=== PATIENT | female | born 1975 | race Hispanic/Latino ===

== ENCOUNTER → 2023-12-14 | Outpatient (CLI) | payer OTHER | END | disposition home or self-care (01) | LOC: RAH 13:05 | PROVIDERS: ATTEND Internal Medicine Cardiovascular Disease | DX: Z13.6 Encounter for screening for cardiovascular disorders (principal) | CPT/HCPCS: 75571 ==

== ENCOUNTER → 2024-04-21 | Outpatient (CLI) | payer OTHER | END | disposition home or self-care (01) | LOC: SHCH 09:22 | PROVIDERS: ATTEND Internal Medicine Cardiovascular Disease | DX: I08.3 Combined rheumatic disorders of mitral, aortic and tricuspid valves (principal); I87.2 Venous insufficiency (chronic) (peripheral); R00.2 Palpitations | CPT/HCPCS: 93306; 93970 ==

== ENCOUNTER 2024-06-21 06:52 | Day surgery (SDC) | payer OTHER ==
[~2024-06-21] VITALS: Ht 162.6 cm; Wt 59.0 kg
[2024-06-21] VITALS (11 sets, daily range): BP systolic 86–114; BP diastolic 51–85; PULSE 58–81; RESP 14–18; TEMP 97.3–97.6
[~2024-06-21 06:52] MED LIST: LORA10TA7 PO; METO-391 PO
[2024-06-21] MEDS: 0.9%NACL 1000ML 1,000 ML IV ONE (07:51)
[2024-06-21] MEDS ORDERED: proPOFol 10 MG/ML 20ML VIAL IV ONE (09:46)
--- NOTE | 2024-06-21 11:38 | NUR ---
Full and complete discharge instructions given to Patient and Family both verbally and in writing. Explained GI procedure precautions and follow up. All questions answered. PIV removed with catheter tip intact. Home with Family W/C to POV.
== END 2024-06-21 11:15 | disposition home or self-care (01) ==
LOC: CANPRESDC → DAH 06:52 → ENDO 06:52
PROVIDERS: ATTEND Internal Medicine Gastroenterology
DX: Z12.11 Encounter for screening for malignant neoplasm of colon (principal); K29.50 Unspecified chronic gastritis without bleeding; K20.90 Esophagitis, unspecified without bleeding; K31.9 Disease of stomach and duodenum, unspecified; K31.89 Other diseases of stomach and duodenum; I10 Essential (primary) hypertension; R10.13 Epigastric pain; Z79.899 Other long term (current) drug therapy; Z87.898 Personal history of other specified conditions; Z98.891 History of uterine scar from previous surgery; Z98.51 Tubal ligation status; Z88.8 Allergy status to other drugs, medicaments and biological substances
CPT/HCPCS: 81025; 43239; 45378; J7030 ×2; J2704; A4620; A4215; A4223; A7002; A4222; A4221; A4663; A4606; J3490

== ENCOUNTER 2024-11-15 07:44 | Day surgery (SDC) | payer OTHER ==
[2024-11-14 15:35] LABS: IMMATURE GRANULOCYTE ABSOLUTE 0.01 K/uL (0-1); NUCLEATED RED BLOOD CELLS 0.0 % (0.0-0.19); PLATELET COUNT (AUTO) 236 K/uL (130-400); RED BLOOD CELL COUNT(AUTO) 4.21 MIL/uL (4.00-5.50); RED CELL DISTRIBUTION WIDTH 12.0 % (11.0-15.5); WHITE BLOOD COUNT (AUTO) 6.0 K/uL (4.8-10.8)
[2024-11-14 15:46] LABS: INR 0.99 (0.85-1.15)
[2024-11-14 15:50] LABS: CREATININE 0.7 mg/dL (0.5-1.0); GLOMERULAR FILTR. RATE CALC 105.0 mL/min (>90); GLUCOSE,RANDOM 90.0 mg/dL (70-105); SODIUM SERUM 141.0 mmol/L (136-145); UREA NITROGEN, BLOOD 12.0 mg/dL (7-18)
[2024-11-14 15:52] VITALS: BP 128/72; PULSE 63; RESP 18; TEMP 97.7
[~2024-11-15] VITALS: Ht 162.6 cm; Wt 63.8 kg
[~2024-11-15 07:44] MED LIST changes: +ALLEGRA D PO; +DEXTROSE 50%-WATER 50 ML DISP.SYRIN IV PRN; +GLUCAGON 1MG KIT 1 MG ML IM PRN; -LORA10TA7 PO; +NITROGLYCERIN 0.4 MG SL TAB SL PRN; +OMEP20CA12 PO
[2024-11-15 07:55] VITALS: BP 89/59; PULSE 64; RESP 12; TEMP 98
[2024-11-15] MEDS: 0.9%NACL 1000ML 1,000 ML IV SCH (08:04)
[2024-11-15] MEDS ORDERED: LIDOCAINE HCL 400MG/20ML VIAL ONE (09:56)
[2024-11-15] MEDS ORDERED: IODIXANOL 320 MG/ML 100 ML VIAL ONE (09:56)
[2024-11-15] MEDS ORDERED: HEParin-NS 1,000 UNIT/500 ML 1,000 ML IV ONE (09:57)
[2024-11-15] MEDS ORDERED: MIDAZOLAM HCL 1 MG/ML 2ML VIAL ONE (10:06)
--- NOTE | 2024-11-15 10:48 | PRN ---
Procedure Note INDICATION FOR PROCEDURE: [] Iliac vein compression PROCEDURE: [] Conscious sedation Left common femoral vein sheath placement eight Tajik Bilateral common femoral venogram Intravascular ultrasound of IVC, bilateral common iliac external iliac common femoral veins DATE OF PROCEDURE: November 15, 2024 MAINTENANCE MECHANIC: Randy Diehl MD, F.A.C.C. PROCEDURE NOTE: [] Patient electively brought to catheterization suite and prepped and draped in sterile fashion. An IV was started if not already in place in both groins were exposed for venous access. 2% lidocaine was used for local anesthesia and then a micropuncture kit was used to gain access and once free-flowing blood was seen modified Seldinger technique was utilized to place a eight Tajik sheath into the left common femoral vein. Next a left common femoral venogram was performed. Next a 0.035 in glidewire successfully traversed over to the right common femoral vein. Next an Omni flush catheter was placed and a venogram was performed followed by the Omni flush catheter removed and the intravascular ultrasound catheter placed and intravascular ultrasound interrogation of right common femoral vein right external iliac vein and right common iliac vein was performed. Next the IVUS catheter was removed and the Omni flush catheter was then used to advance into the IVC. Next Omni flush catheter was removed over wire and then the intravascular ultrasound catheter was then advanced and interrogation was done of the IVC, left common iliac vein external iliac vein and common femoral vein. At end of case sheath was removed using manual pressure and no complications occurred. FINDINGS: [] Critical compression of left common iliac vein at 74% and left external iliac vein at 51.3% No significant compression noted of right common iliac venous system. IMPRESSION: [] Critical left common iliac and external iliac vein compression, symptomatic PLAN: [] Follow up in office in two weeks No driving 24 hours No heavy lifting 5 lb or greater for three days Trying to obtain authorization for intervention to severe symptomatic left common iliac and external iliac vein compression RANDY DIEHL MD Nov 15, 2024 10:48
[2024-11-15] MEDS ORDERED: GLUCAGON 1MG KIT 1 MG ML IM PRN (11:00)
[2024-11-15] MEDS ORDERED: DEXTROSE 50%-WATER 50 ML DISP.SYRIN IV PRN (11:00)
[2024-11-15 11:05] VITALS: BP 104/71; PULSE 60; RESP 16; TEMP 97.7
[2024-11-15 11:20] VITALS: BP 96/66; PULSE 62; RESP 16
[2024-11-15 11:35] VITALS: BP 98/67; PULSE 60; RESP 14
[2024-11-15 11:50] VITALS: BP 97/63; PULSE 61; RESP 14
--- NOTE | 2024-11-15 12:04 | NUR ---
Left Femoral site without sign of bleeding bruising or hematoma. Dressing remains clean and dry. Pedal pulses intact to ble's. Patient and Family instructed on importance of keeping Left leg straight and POC until discharge.Both voiced understanding in full. PIV dc'd with catheter tip intact. W/C to POV with Family to home.
== END 2024-11-15 12:10 | disposition home or self-care (01) ==
LOC: DAH 07:44
PROVIDERS: ATTEND Internal Medicine Cardiovascular Disease
DX: I87.1 Compression of vein (principal); I87.2 Venous insufficiency (chronic) (peripheral); I10 Essential (primary) hypertension; J45.909 Unspecified asthma, uncomplicated; I45.10 Unspecified right bundle-branch block; I49.1 Atrial premature depolarization; R60.9 Edema, unspecified; Z79.01 Long term (current) use of anticoagulants; Z79.899 Other long term (current) drug therapy
CPT/HCPCS: 80048; 84703; 85025; 85610; 85730; 36415; 75822; 36012; 37252; 37253 ×5; 99156; 99157; C1769; C1894 ×2; C1753; J3010; J3490; J2250; J1644; Q9967; A4215; A4222; A4221; A4663; A4216; A4606; A4223 ×3